=== PATIENT | male | born 1965 | race Caucasian/White ===

== ENCOUNTER 2021-05-23 16:14 | Emergency (ER) | payer OTHER ==
[2021-05-23] MEDS ORDERED: Lidocaine 1% 10 ML MDV INJECT ONE (17:26)
--- NOTE | 2021-05-23 17:46 | EDM.PDOC ---
ED HPI GENERAL MEDICAL PROBLEM - General Chief Complaint: Lower Extremity Injury/Pain Stated Complaint: KNEE LAC LEFT Time Seen by Provider: 05/23/21 17:10 Source of Information: Reports: Patient History Limitations: Reports: No Limitations - History of Present Illness INITIAL COMMENTS - FREE TEXT/NARRATIVE: 55-year-old male presents the emergency department today with complaints of a laceration to his left knee. Patient states he was out golfing and was looking for golf balls in the brush when he attempted to climb over a fredo wire fence and cut the medial aspect of his left knee. There is a small half centimeter laceration noted that is oozing. Patient states they have been able to get the bleeding controlled. They state they believe he soaked through about a dish towel. Patient denies being on any blood thinners. And he does not take any aspirin. Patient states that his tetanus shot is not up-to-date. Treatments INSPECTOR INSULATION: Reports: Other (see below) Other Treatments INSPECTOR INSULATION: none - Related Data Allergies Allergy/AdvReac Type Severity Reaction Status Date / Time No Known Allergies Allergy Verified 05/23/21 16:52 Home Meds: Home Meds . [No Known Home Meds] 05/23/21 [History] Past Medical History - Past Surgical History Musculoskeletal Surgical History: Reports: Hip Replacement Social & Family History - Tobacco Use Tobacco Use Status *Q: Never Tobacco User - Caffeine Use Caffeine Use: Reports: Coffee - Recreational Drug Use Recreational Drug Use: No Review of Systems - Review of Systems Review Of Systems: Comprehensive ROS is negative, except as noted in HPI. ED EXAM, GENERAL - Physical Exam Exam: See Below Exam Limited By: No Limitations General Appearance: Alert, WD/WN, No Apparent Distress Ears: Normal External Exam, Hearing Grossly Normal Nose: Normal Inspection Throat/Mouth: Normal Inspection, Normal Lips, Normal Voice, No Airway Compromise Head: Atraumatic Neck: Normal Inspection Respiratory/Chest: No Respiratory Distress, No Accessory Muscle Use Cardiovascular: Normal Peripheral Pulses, Regular Rate, Rhythm GI/Abdominal: No Distention (Male) Exam: Deferred Rectal (Males) Exam: Deferred Back Exam: Normal Inspection Extremities: No: Normal Inspection (Laceration to noted to the left medial aspect of the kneecap) Neurological: Alert, Oriented, Normal Cognition Psychiatric: Normal Affect, Normal Mood Skin Exam: Warm, Dry, Normal Color (Half centimeter laceration noted to left medial knee), No Rash, Wound/Incision Lymphatic: No Adenopathy ED TRAUMA EXTREMITY PROCEDURES - Laceration/Wound Repair Left Medial Knee Lac/Wound Length In cm: 0.5 Appearance: Superficial Anesthetic Type: Local Local Anesthesia - Lidocaine (Xylocaine): 1% Plain Closed With: Sutures Suture Size: 4-0 # of Sutures: 2 Suture Type: Nylon, Interrupted Course - Vital Signs Text/Narrative:: As stated above, patient presents with a laceration to the medial aspect of his left knee. Laceration is approximately 1/2 cm in length. It is oozing blood. It appears that he must have nicked an artery. I have ordered lidocaine to locally anesthetize the area and sutures will be placed. Last Recorded V/S: Last Vital Signs Temp 98.9 F 05/23/21 16:55 Pulse 84 05/23/21 16:55 Resp 20 05/23/21 16:55 BP 149/104 H 05/23/21 16:55 Pulse Ox 95 05/23/21 16:55 - Orders/Labs/Meds Meds: Medications Discontinued Medications Generic Name Dose Route Start Last Admin Trade Name Sridevi PRN Reason Stop Dose Admin Lidocaine HCl 10 ml 05/23/21 17:26 05/23/21 17:33 Lidocaine 1% 10 Ml Mdv INJECT 05/23/21 17:27 10 ml ONETIME ONE Administration - Re-Assessments/Exams Free Text/Narrative Re-Assessment/Exam: 05/23/21 17:54 Left knee was prepped and draped in a sterile fashion and sutures were placed. Patient tolerated the procedure well. Departure - Departure Time of Disposition: 17:44 Disposition: Home, Self-Care 01 Condition: Good Clinical Impression: Laceration - Discharge Information Instructions: Laceration Care, Adult, [id number] Referrals: PCP,Not In Area [Primary Care Provider] - Forms: ED Department Discharge Additional Instructions: You were seen in the emergency department with a laceration to your left knee. Lidocaine was used to anesthetize the area of laceration on the knee. 2 sutures were placed in the area and there is still some oozing noted however pressure dressing can be applied and should help stop this as well. Sutures can come out in about 10 days time. Keep the initial dressing on for 24 hours. Wash the wound twice daily with mild soap such as Dial or Shamir's baby shampoo. Pat the area dry and apply a thin film of bacitracin to the area. Watch for any signs or symptoms of infection such as increased redness, warmth, swelling or pus. Sepsis Event Note (ED) - Focused Exam Vital Signs: Vital Signs Temp Pulse Resp BP Pulse Ox 05/23/21 16:55 98.9 F 84 20 149/104 H 95
[2021-05-23] MEDS ORDERED: Diphtheria,Pertussis(Acell),Tetanus Vaccine 0.5 ML Syringe IM ONE (17:51)
== END 2021-05-23 18:15 | disposition home or self-care (01) ==
LOC: JD.ED 16:14
DX: S81.012A Laceration without foreign body, left knee, initial encounter (principal); Z23 Encounter for immunization; W26.8XXA Contact with other sharp object(s), not elsewhere classified, initial encounter; Y93.53 Activity, golf
CPT/HCPCS: 12001; 90471; 90715; 99282; 99282-25